=== PATIENT | male | born 1955 | race Caucasian/White ===

== ENCOUNTER 2016-10-08 10:02 | Day surgery (SDC) | payer BC ==
[2016-10-05 15:41] VITALS: BMI 31.6
[2016-10-08 13:30] VITALS: TEMP 98.3
[2016-10-08 13:51] VITALS: BP 120/68; PULSE 62
--- NOTE | 2016-10-11 12:20 | PATH ---
Surgical Pathology Report Patient Name: [facility]. Rec. #: [id number] /Age/Gender: 1955 (Age: 61) / M Account: [id number] Location: [facility]-ENDOSCOPY Taken: 10/08/2016 Received: 10/08/2016 Reported: 10/11/2016 Physicians: Rajinder uL M.D. Specimen(s) Received A: BX DUODENUM B: BX ANTRUM Clinical History GERD Final Diagnosis A. DUODENUM, BIOPSY: DUODENAL MUCOSA WITHOUT SIGNIFICANT PATHOLOGIC CHANGES. NO HISTOLOGIC EVIDENCE OF GLUTEN SENSITIVE ENTEROPATHY (CELIAC DISEASE). B. STOMACH, ANTRUM, BIOPSY: GASTRIC ANTRAL MUCOSA WITH MILD CHRONIC GASTRITIS AND REACTIVE GASTROPATHY. IMMUNOSTAIN FOR H. PYLORI IS NEGATIVE FOR ORGANISMS. Electronically Signed Donald Pena M.D. Gross Description A. Received in formalin, labeled "duodenum" is a warren, irregular portion of soft tissue measuring 0.5 cm in greatest dimension. The specimen is submitted in toto in one cassette. B. Received in formalin, labeled "antrum" are 2 warren, irregular portions of soft tissue averaging 0.4 cm in greatest dimension. The specimens are submitted in toto in one cassette. 10/10/2016 [facility]10/10/2016
== END 2016-10-08 13:50 | disposition home or self-care (01) ==
LOC: FASU-ENDO 10:02
PROVIDERS: ATTEND Internal Medicine Gastroenterology
PROC: 0DB98ZX Excision of Duodenum, Via Natural or Artificial Opening Endoscopic, Diagnostic (ICD-10-PCS; principal; 2016-10-08 12:48)
PROC: 0DB68ZX Excision of Stomach, Via Natural or Artificial Opening Endoscopic, Diagnostic (ICD-10-PCS; 2016-10-08 12:48)
DX: K29.50 Unspecified chronic gastritis without bleeding (principal)
CPT/HCPCS: 88305-TC; 88342-TC

== ENCOUNTER 2017-01-07 14:25 | Observation (INO) | payer OTHER, BC ==
--- NOTE | 2017-01-07 14:40 | PDOC ---
History of Present Illness - General History Source: Patient Exam Limitations: No Limitations <Angela Guadalupe - Last Filed: 01/07/17 17:24> <Naina Abdullahi - Last Filed: 01/07/17 17:47> - General Chief Complaint: Chest Pain Stated Complaint: CHEST TIGHTNESS, PL 0/10 NOW Time Seen by Provider: 01/07/17 14:40 - History of Present Illness Initial Comments: 01/07/17 16:06 61 year old male, with significant past medical history of lap band surgery ( 2012) and GERD, who presents to the emergency room complaining of 3 days of intermittent chest pressure that is nonexertional and not worse with movement. The patient visited an Urgent Care today for these symptoms and his EKG revealed a Right bundle branch block and was advised to visit the ED. He notes that his lower legs seems more swollen than as if he was retaining water. Denies SOB, cough. Denies recent travel. Denies fever, chills, nausea, vomiting. Allergies: NKA PCP: Dr. Familia Sheridan Automotive Product Engineer: Dr. Yip (Eb [place]) Past History <AdrianluisAngela - Last Filed: 01/07/17 17:24> - Past Medical History Anemia: Yes Asthma: No Cancer: No Cardiac Disorders: No CVA: No COPD: No CHF: No Dementia: No Diabetes: No (NOT A PROBLEM SINCE WEIGHT LOSS) GI Disorders: Yes (GERD) Disorders: No HTN: No Hypercholesterolemia: No Liver Disease: No Seizures: No Thyroid Disease: No - Surgical History Abdominal Surgery: Yes (LAP BAND 2012) Appendectomy: No Cardiac Surgery: No Cholecystectomy: No GI Surgery: Yes (LAP BAND) Lung Surgery: No Neurologic Surgery: No Orthopedic Surgery: Yes (RIGHT AND LEFT HIP REPLACEMENT 1999) - Immunization History Td Vaccination: Yes Immunization Up to Date: Yes - Suicide/Smoking/Psychosocial Hx Smoking Status: No Smoking History: Never smoked Have you smoked in the past 12 months: No Number of Cigarettes Smoked Daily: 0 Information on smoking cessation initiated: No Hx Alcohol Use: No Drug/Substance Use Hx: No Substance Use Type: Alcohol Hx Substance Use Treatment: No <Naina Abdullahi - Last Filed: 01/07/17 17:47> - Past Medical History Allergies/Adverse Reactions: Allergies Allergy/AdvReac Type Severity Reaction Status Date / Time No Known Allergies Allergy Verified 01/07/17 14:29 Home Medications: Ambulatory Orders Aspirin [ASA -] 81 mg PO DAILY 11/11/13 Pantoprazole Sodium [Protonix] 40 mg PO DAILY 10/08/16 Cardiac Specific PMH - Complaint Specific PMHX Pacemaker: No <Naina Abdullahi - Last Filed: 01/07/17 17:47> Review of Systems - Review of Systems Able to Perform ROS?: Yes <Angela Guadalupe - Last Filed: 01/07/17 17:24> <Naina Abdullahi - Last Filed: 01/07/17 17:47> - Review of Systems Comments:: 01/07/17 16:11 GENERAL/CONSTITUTIONAL: No fever or chills. No weakness. HEAD, EYES, EARS, NOSE AND THROAT: No change in vision. No ear pain or discharge. No sore throat. GASTROINTESTINAL: No nausea, vomiting, diarrhea or constipation. GENITOURINARY: No dysuria, frequency, or change in urination. CARDIOVASCULAR:+chest pain. No shortness of breath. RESPIRATORY: No cough, wheezing, or hemoptysis. MUSCULOSKELETAL: No joint or muscle swelling or pain. No neck or back pain. SKIN: No rash NEUROLOGIC: No headache, vertigo, loss of consciousness, or change in strength/ sensation. ENDOCRINE: No increased thirst. No abnormal weight change. HEMATOLOGIC/LYMPHATIC: No anemia, easy bleeding, or history of blood clots. ALLERGIC/IMMUNOLOGIC: No hives or skin allergy. (Angela Guadalupe) *Physical Exam <Angela Guadalupe - Last Filed: 01/07/17 17:24> <Naina Abdullahi - Last Filed: 01/07/17 17:47> - Vital Signs Last Vital Signs Temp Pulse Resp BP Pulse Ox 99.3 F 87 16 145/57 99 01/07/17 14:25 01/07/17 17:00 01/07/17 17:00 01/07/17 17:00 01/07/17 17:00 - Physical Exam Comments: 01/07/17 16:12 GENERAL: Awake, alert, and fully oriented, in no acute distress HEAD: No signs of trauma EYES: PERRLA, EOMI, sclera anicteric, conjunctiva clear ENT: Auricles normal inspection, hearing grossly normal, nares patent, oropharynx clear without exudates. Moist mucosa NECK: Normal ROM, supple, no lymphadenopathy, JVD, or masses LUNGS: Breath sounds equal, clear to auscultation bilaterally. No wheezes, and no crackles HEART: Regular rate and rhythm, normal S1 and S2, no murmurs, rubs or gallops ABDOMEN: Soft, nontender, normoactive bowel sounds. No guarding, no rebound. No masses EXTREMITIES: +trace pitting edema bilaterally. Normal range of motion. No clubbing or cyanosis. No cords, erythema, or tenderness NEUROLOGICAL: Cranial nerves II through XII grossly intact. Normal speech, normal gait SKIN: Warm, Dry, normal turgor, no rashes or lesions noted. (Angela Guadalupe) ED Treatment Course - LABORATORY CBC & Chemistry Diagram: 01/07/17 15:15 01/07/17 15:15 <Angela Guadalupe - Last Filed: 01/07/17 17:24> - LABORATORY CBC & Chemistry Diagram: 01/07/17 15:15 01/07/17 15:15 <Naina Abdullahi - Last Filed: 01/07/17 17:47> - ADDITIONAL ORDERS Additional order review: Laboratory Results 01/07/17 01/07/17 15:15 15:15 Sodium 136 Potassium 5.2 H D Chloride 101 Carbon Dioxide 26 Anion Gap 9 BUN 18 Creatinine 1.0 Creat Clearance w eGFR > 60 Random Glucose 86 Calcium 9.5 Total Bilirubin 1.1 H D AST 42 D ALT 23 Alkaline Phosphatase 55 D Creatine Kinase 388 H Creatine Kinase Index 0.6 CK-MB (CK-2) 2.7 Troponin I < 0.03 L Total Protein 7.2 Albumin 4.1 Lipase 40 01/07/17 15:15 RBC 5.23 MCV 67.4 L MCHC 31.4 L RDW 18.8 H D MPV 9.7 Neutrophils % 66.6 Lymphocytes % 21.7 D Monocytes % 7.7 D Eosinophils % 3.7 Basophils % 0.3 - Medications Given in the ED: ED Medications Discontinued Medications Generic Name Dose Route Start Last Admin Trade Name Freq PRN Reason Stop Dose Admin Aspirin 162 mg 01/07/17 15:07 01/07/17 15:15 Asa - PO 01/07/17 15:08 162 mg ONCE ONE Administration Medical Decision Making <Angela Guadalupe - Last Filed: 01/07/17 17:24> <Naina Abdullahi - Last Filed: 01/07/17 17:47> - Medical Decision Making 01/07/17 17:45 Pt presents to the ED complaining of chest discomfort. EKG shows RBB with left anterior fasicular block of uncertain age. Case discussed with Dr. Sheridan, who agrees with admitting the patient for observation. Will admit to telemetry for serial enzymes and possible stress test vs echo in AM. (Naina Abdullahi) *DC/Admit/Observation/Transfer <Angela Guadalupe - Last Filed: 01/07/17 17:24> - Discharge Dispostion Admit: Yes <Naina Abdullahi - Last Filed: 01/07/17 17:47> Diagnosis at time of Disposition: Chest pain Qualifiers: Chest pain type: other chest pain Qualified Code(s): R07.89 - Other chest pain ; R07.8 - Other chest pain - Discharge Dispostion Condition at time of disposition: Good - Referrals Referrals: Dilia Sheridan MD [Primary Care Provider] - - Patient Instructions - Post Discharge Activity
[2017-01-07] MEDS ORDERED: ASPIRIN 81 MG CHEWABLE TABLETS PO ONE (15:07)
[2017-01-07] MEDS ORDERED: ASPIRIN 81 MG CHEWABLE TABLETS ONE (15:22)
[2017-01-07 16:23] LABS: BASOPHIL 0.3 % (0-2.0); EOSINOPHIL 3.7 % (0-4.5); MCH 21.2 pg (25.7-33.7); MCHC 31.4 g/dl (32.0-35.9); MEAN CELL VOLUME 67.4 fl (80-96); MEAN PLT VOLUME 9.7 fl (7.5-11.1); NEUTROPHILS 66.6 % (42.8-82.8); PLATELET COUNT 211 K/MM3 (134-434); RDW 18.8 % (11.9-15.9); WHITE BLOOD COUNT 8.5 K/mm3 (4.0-10.8)
[2017-01-07 16:38] LABS: ALBUMIN 4.1 g/dl (3.5-5.0); ALK PHOS 55 U/L (32-92); ANION GAP 9 (8-16); BILIRUBIN,TOTAL 1.1 mg/dl (0.2-1.0); CALCIUM 9.5 mg/dl (8.4-10.2); CO2 26 mmol/L (22-28); CPK 388 IU/L (39-308); GLUCOSE,RANDOM 86 mg/dl (74-106); SGOT/AST 42 U/L (10-42); SGPT/ALT 23 U/L (10-40); TOT PROT 7.2 g/dl (6.4-8.3)
[2017-01-07 17:03] LABS: TROPONIN I (DFP) < 0.03 ng/ml (0.03-0.50)
[2017-01-07 18:54] VITALS: BMI 35.9
[2017-01-07 19:07] LABS: ANISOCYTOSIS 2+; HYPOCHROMIA 2+; MICROCYTOSIS 2+
--- NOTE | 2017-01-07 19:57 | HP ---
CHIEF COMPLAINT: Chest Pain PCP: Dr. Dilia Sehridan HISTORY OF PRESENT ILLNESS: This is a 61 y/o male with a past medical history of GERD, Anemia, Severe Obesity (s/p Lap Band, 2012). Who presents to the ED with midsternal chest pressure and tightness x 4-5 days. Patient reports going to Urgent Care for CP and having an EKG which showed a RBBB, and was sent here for eval. 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 He reports that the pain radiated from his shoulder to the middle of his chest. Patient reports eating excessive amounts of creamy based soups from the diner and German food noting swelling to bilateral lower extremities. Patient denies fever, chills, cough, SOB, palpitations, AP, N/V/D, constipation, dysuria. Patient reports having an echo February 2016- normal, and a nuclear stress test 6yrs ago- negative. ER course was notable for: (1) EKG- RBBB (2) Troponin I- negative (3) Recent Travel: None PAST MEDICAL HISTORY: GERD Anemia Severe Obesity PAST SURGICAL HISTORY: Lap Band Social History: Smoking: Never Alcohol: Occasional Drugs: None Family History: Allergies No Known Allergies Allergy (Verified 01/07/17 14:29) HOME MEDICATIONS: Home Medications Medication Instructions Recorded Aspirin [ASA -] 81 mg PO DAILY 11/11/13 Pantoprazole Sodium [Protonix] 40 mg PO DAILY 10/08/16 REVIEW OF SYSTEMS CONSTITUTIONAL: Absent: fever, chills, diaphoresis, generalized weakness, malaise, loss of appetite, weight change HEENT: Absent: rhinorrhea, nasal congestion, throat pain, throat swelling, difficulty swallowing, mouth swelling, ear pain, eye pain, visual changes CARDIOVASCULAR: chest pain Absent: syncope, palpitations, irregular heart rate, lightheadedness, peripheral edema RESPIRATORY: Absent: cough, shortness of breath, dyspnea with exertion, orthopnea, wheezing, stridor, hemoptysis GASTROINTESTINAL: Absent: abdominal pain, abdominal distension, nausea, vomiting, diarrhea, constipation, melena, hematochezia GENITOURINARY: Absent: dysuria, frequency, urgency, hesitancy, hematuria, flank pain, genital pain MUSCULOSKELETAL: shoulder pain Absent: myalgia, arthralgia, joint swelling, back pain, neck pain SKIN: Absent: rash, itching, pallor HEMATOLOGIC/IMMUNOLOGIC: Absent: easy bleeding, easy bruising, lymphadenopathy, frequent infections ENDOCRINE: Absent: unexplained weight gain, unexplained weight loss, heat intolerance, cold intolerance NEUROLOGIC: Absent: headache, focal weakness or paresthesias, dizziness, unsteady gait, seizure, mental status changes, bladder or bowel incontinence PSYCHIATRIC: Absent: anxiety, depression, suicidal or homicidal ideation, hallucinations. PHYSICAL EXAMINATION Vital Signs - 24 hr 01/07/17 01/07/17 01/07/17 14:25 17:00 18:25 Temperature 99.3 F 99.9 F H Pulse Rate 89 87 Pulse Rate [ 87 Left Apical] Respiratory 18 16 16 Rate Blood Pressure 150/94 145/75 Blood Pressure 145/57 [Right Arm] O2 Sat by Pulse 98 99 Oximetry (%) GENERAL:Obese, awake, alert, and fully oriented, in no acute distress. HEAD: Normal with no signs of trauma. EYES: Pupils equal, round and reactive to light, extraocular movements intact, sclera anicteric, conjunctiva clear. No lid lag. EARS, NOSE, THROAT: Ears normal, nares patent, oropharynx clear without exudates. Moist mucous membranes. NECK: Normal range of motion, supple without lymphadenopathy, JVD, or masses. LUNGS: Breath sounds equal, clear to auscultation bilaterally. No wheezes, and no crackles. No accessory muscle use. HEART: Regular rate and rhythm, normal S1 and S2 without murmur, rub or gallop. ABDOMEN: Soft, nontender, not distended, normoactive bowel sounds, no guarding, no rebound, no masses. No hepatomegaly or splenomegaly. MUSCULOSKELETAL: Limited range of motion upper joints. FROM lower joints. No bony deformities or tenderness. No CVA tenderness. UPPER EXTREMITIES: 2+ pulses, warm, well-perfused. No cyanosis. No clubbing. No peripheral edema. LOWER EXTREMITIES: 2+ pulses, warm, well-perfused. No calf tenderness. +1 R>L peripheral edema. NEUROLOGICAL: Cranial nerves II-XII intact. Normal speech. Normal gait. PSYCHIATRIC: Cooperative. Good eye contact. Appropriate mood and affect. SKIN: Warm, dry, normal turgor, no rashes or lesions noted, normal capillary refill. Laboratory Results - last 24 hr 01/07/17 01/07/17 01/07/17 15:15 15:15 15:15 WBC 8.5 RBC 5.23 Hgb 11.1 L D Hct 35.3 L D MCV 67.4 L MCH 21.2 L MCHC 31.4 L RDW 18.8 H D Plt Count 211 MPV 9.7 Neutrophils % 66.6 Lymphocytes % 21.7 D Monocytes % 7.7 D Eosinophils % 3.7 Basophils % 0.3 Hypochromia 2+ Anisocytosis 2+ Microcytosis 2+ Sodium 136 Potassium 5.2 H D Chloride 101 Carbon Dioxide 26 Anion Gap 9 BUN 18 Creatinine 1.0 Creat Clearance w eGFR > 60 Random Glucose 86 Calcium 9.5 Total Bilirubin 1.1 H D AST 42 D ALT 23 Alkaline Phosphatase 55 D Creatine Kinase 388 H Creatine Kinase Index 0.6 CK-MB (CK-2) 2.7 Troponin I < 0.03 L Total Protein 7.2 Albumin 4.1 Lipase 40 ASSESSMENT/PLAN: This is a 61 y/o man with a PMHx of GERD, Asthma, Anemia, Severe Obesity. Placed in Tele Observation for Chest Pain r/o ACS for further evaluation of their emergent condition. Plan: 1. Chest Pain - r/o ACS - Continue cardiac monitoring - HEART Score 4 - Serial Enzymes - Appreciate Cardiology Consult - Will order chest xray - Asa, Lipitor - Echo in am - Stress Test 2. GERD - Continue Protonix 3. Asthma - Albuterol neb prn 4. Anemia - Hb 11.1, below baseline - Will transfuse if Hb < 7.0 - Consider iron studies, f/u outpatient 5. Severe Obesity - s/p Lap Band 6. FEN - PO fluids - Replete lytes - Low Na Diet 7. DVT Prophylaxis - OOB - SCDs Code Status: Full Code Dispo: Tele Observation Problem List - Problem (1) Chest pain Code(s): R07.9 - CHEST PAIN, UNSPECIFIED Qualifiers: Chest pain type: other chest pain Qualified Code(s): R07.89 - Other chest pain; R07.8 - Other chest pain (2) GERD (gastroesophageal reflux disease) Code(s): K21.9 - GASTRO-ESOPHAGEAL REFLUX DISEASE WITHOUT ESOPHAGITIS (3) Anemia Code(s): D64.9 - ANEMIA, UNSPECIFIED (4) DVT prophylaxis Code(s): KCP3993 - Visit type - Emergency Visit Emergency Visit: Yes ED Registration Date: 01/07/17 Care time: The patient presented to the Emergency Department on the above date and was hospitalized for further evaluation of their emergent condition. - New Patient This patient is new to me today: Yes Date on this admission: 01/07/17 - Critical Care Critical Care patient: No
[2017-01-08 07:58] LABS: ANION GAP 7 (8-16); CALCIUM 9.5 mg/dl (8.4-10.2); CHOLESTEROL 192 mg/dl; CO2 28 mmol/L (22-28); GLUCOSE,RANDOM 97 mg/dl (74-106); MAGNESIUM 1.8 mg/dL (1.8-2.4); PHOSPHOROUS 3.9 mg/dl (2.5-4.6)
[2017-01-08 08:17] LABS: BASOPHIL 0.6 % (0-2.0); EOSINOPHIL 7.2 % (0-4.5); MCH 21.2 pg (25.7-33.7); MCHC 31.5 g/dl (32.0-35.9); MEAN CELL VOLUME 67.4 fl (80-96); MEAN PLT VOLUME 9.3 fl (7.5-11.1); NEUTROPHILS 59.1 % (42.8-82.8); PLATELET COUNT 204 K/MM3 (134-434); RDW 18.5 % (11.9-15.9); WHITE BLOOD COUNT 6.9 K/mm3 (4.0-10.8)
--- NOTE | 2017-01-08 08:18 | PN ---
Physical Exam: SUBJECTIVE: Patient seen and examined, ambulatory at bedside, denies any chest pain or shortness of breath. OBJECTIVE: patient is a 61 y/o male with a past medical history of GERD, Anemia , Severe Obesity (s/p Lap Band, 2012). patient was admitted from the emergency department to observation for chest pain r/o acs Vital Signs Period Temp Pulse Resp BP Sys/David Pulse Ox Last 24 Hr 98.0 F-99.9 F 61-89 16-18 142-150/57-94 98-99 GENERAL: The patient is awake, alert, and fully oriented, in no acute distress. HEAD: Normal with no signs of trauma. EYES: PERRL, extraocular movements intact, sclera anicteric, conjunctiva clear. No ptosis. ENT: Ears normal, nares patent, oropharynx clear without exudates, moist mucous membranes. NECK: Trachea midline, full range of motion, supple. LUNGS: Breath sounds equal, clear to auscultation bilaterally, no wheezes, no crackles, no accessory muscle use. HEART: Regular rate and rhythm, S1, S2 without murmur, rub or gallop. ABDOMEN: Soft, nontender, nondistended, normoactive bowel sounds, no guarding, no rebound, no hepatosplenomegaly, no masses. EXTREMITIES: 2+ pulses, warm, well-perfused, no edema. NEUROLOGICAL: Cranial nerves II through XII grossly intact. Normal speech, gait not observed. PSYCH: Normal mood, normal affect. SKIN: Warm, dry, normal turgor, no rashes or lesions noted Laboratory Results - last 24 hr CBC WBC 6.9 K/mm3 (4.0-10.8) 01/08/17 07:10 RBC 4.86 M/mm3 (4.00-5.60) 01/08/17 07:10 Hgb 10.3 GM/dl (11.7-16.9) L 01/08/17 07:10 Hct 32.8 % (35.4-49) L 01/08/17 07:10 MCV 67.4 fl (80-96) L 01/08/17 07:10 MCH 21.2 pg (25.7-33.7) L 01/08/17 07:10 MCHC 31.5 g/dl (32.0-35.9) L 01/08/17 07:10 RDW 18.5 % (11.9-15.9) H 01/08/17 07:10 Plt Count 204 K/MM3 (134-434) 01/08/17 07:10 MPV 9.3 fl (7.5-11.1) 01/08/17 07:10 Neutrophils % 59.1 % (42.8-82.8) 01/08/17 07:10 Lymphocytes % 24.5 % (8-40) 01/08/17 07:10 Monocytes % 8.6 % (3.8-10.2) 01/08/17 07:10 Eosinophils % 7.2 % (0-4.5) H D 01/08/17 07:10 Basophils % 0.6 % (0-2.0) 01/08/17 07:10 Hypochromia 2+ 01/07/17 15:15 Anisocytosis 2+ 01/07/17 15:15 Microcytosis 2+ 01/07/17 15:15 CMP Sodium 138 mmol/L (136-145) 01/08/17 07:10 Potassium 4.4 mmol/L (3.5-5.1) 01/08/17 07:10 Chloride 103 mmol/L (98-107) 01/08/17 07:10 Carbon Dioxide 28 mmol/L (22-28) 01/08/17 07:10 Anion Gap 7 (8-16) L 01/08/17 07:10 BUN 18 mg/dl (7-18) 01/08/17 07:10 Creatinine 1.0 mg/dl (0.6-1.3) 01/08/17 07:10 Creat Clearance w eGFR > 60 (>60) 01/07/17 15:15 Random Glucose 97 mg/dl (74-106) 01/08/17 07:10 Hemoglobin A1c % 6.0 % (4.8-6.0) 01/08/17 07:10 Calcium 9.5 mg/dl (8.4-10.2) 01/08/17 07:10 Phosphorus 3.9 mg/dl (2.5-4.6) 01/08/17 07:10 Magnesium 1.8 mg/dL (1.8-2.4) 01/08/17 07:10 Total Bilirubin 1.1 mg/dl (0.2-1.0) H D 01/07/17 15:15 AST 42 U/L (10-42) D 01/07/17 15:15 ALT 23 U/L (10-40) 01/07/17 15:15 Alkaline Phosphatase 55 U/L (32-92) D 01/07/17 15:15 Creatine Kinase 388 IU/L (39-308) H 01/07/17 15:15 Creatine Kinase Index 0.6 % (0.0-5.0) 01/07/17 15:15 CK-MB (CK-2) 2.7 ng/mL (0.3-4.0) 01/07/17 15:15 Troponin I < 0.03 ng/ml (0.03-0.50) L 01/08/17 07:10 Total Protein 7.2 g/dl (6.4-8.3) 01/07/17 15:15 Albumin 4.1 g/dl (3.5-5.0) 01/07/17 15:15 Triglycerides 67 mg/dl (35-160) 01/08/17 07:10 Cholesterol 192 mg/dl 01/08/17 07:10 Total LDL Cholesterol 125 mg/dl 01/08/17 07:10 HDL Cholesterol 54 mg/dl (29-89) 01/08/17 07:10 Lipase 40 U/L (22-51) 01/07/17 15:15 Active Medications Generic Name Dose Route Start Last Admin Trade Name Freq PRN Reason Stop Dose Admin Aspirin 81 mg 01/08/17 10:00 Asa - PO DAILY [facility] Pantoprazole Sodium 40 mg 01/08/17 10:00 Protonix - PO DAILY [facility] ASSESSMENT/PLAN: 1. Chest Pain r/o ACS - Continue cardiac monitoring - troponin x 3 wnl - pending echo - appreciate cardiology input, Dr Yip, patient's private application systems architect 2. GERD - Continue Protonix 3. Asthma - Albuterol neb prn 4. Severe Obesity - s/p Lap Band 5. microcytic anemia - hgb 10.3, anemia secondary to malabsorption pt is s/p bariatric surgery, pending iron studies 6. FEN - PO fluids - Replete lytes - Low Na Diet 7. DVT Prophylaxis - OOB - SCDs Code Status: Full Code Dispo: Tele Observation Visit type - Emergency Visit Emergency Visit: Yes ED Registration Date: 01/07/17 Care time: The patient presented to the Emergency Department on the above date and was hospitalized for further evaluation of their emergent condition. - New Patient This patient is new to me today: Yes Date on this admission: 01/08/17 - Critical Care Critical Care patient: No - Discharge Referral Referred to [facility] No
[2017-01-08] MEDS ORDERED: PANTOPRAZOLE 40 MG TABLET (FP) PO SCH (10:00)
[2017-01-08] MEDS ORDERED: ASPIRIN 81 MG CHEWABLE TABLETS PO SCH (10:00)
[2017-01-08 14:28] VITALS: BP 125/64; PULSE 63; TEMP 98.7
--- NOTE | 2017-01-08 19:04 | CON.CARD ---
Consult Consult Specialty:: Cardiology Referred by:: Hospitalist Reason for Consultation:: Cardiac evaluation - History of Present Illness Chief Complaint: Chest pain History of Present Illness: Patient is a 61 year old male well known to me with underlying history of GERD, anemia, morbid obesity s/p gastric lap band surgery who presents with bilateral shoulder discomfort rather than mid sternal chest discomfort. He denies shortness of breath or palpitation. He denies paroxysmal nocturnal dyspnea or orthopnea. He denies fever or chills. He denies headache or lightheadedness. He denies nausea, vomiting, diarrhea or abdominal pain. Cardiology consultation was called for further evaluation. - History Source History Provided By: Patient, Family Member, Significant Other Limitations to Obtaining History: No Limitations - Past Medical History Gastrointestinal: Yes: GERD Heme/Onc: Yes: Anemia - Past Surgical History Additional Surgical History: Gastric lap band surgery - Alcohol/Substance Use Hx Alcohol Use: Yes (rare) History of Substance Use: reports: None - Smoking History Smoking history: Never smoked Have you smoked in the past 12 months: No Aproximately how many cigarettes per day: 0 Home Medications - Allergies Allergies/Adverse Reactions: Allergies Allergy/AdvReac Type Severity Reaction Status Date / Time No Known Allergies Allergy Verified 01/07/17 14:29 - Home Medications Home Medications: Ambulatory Orders Aspirin [ASA -] 81 mg PO DAILY 11/11/13 Pantoprazole Sodium [Protonix] 40 mg PO DAILY 10/08/16 Aspirin [ASA -] 81 mg PO DAILY tab.chew 01/08/17 Review of Systems - Review of Systems Constitutional: denies: Chills, Fever Cardiovascular: denies: Chest Pain, Palpitations, Shortness of Breath Gastrointestinal: denies: Abdominal Pain, Constipation, Diarrhea, Melena, Rectal Bleeding, Vomiting Neurological: denies: Dizziness, Headache, Seizure, Syncope Vital Signs: Vital Signs Temperature 98.7 F 01/08/17 14:27 Pulse Rate 63 01/08/17 14:27 Respiratory Rate 18 01/08/17 14:27 Blood Pressure 125/64 01/08/17 14:27 O2 Sat by Pulse Oximetry (%) 97 01/08/17 14:27 Neck: Yes: Supple Respiratory: Yes: CTA Bilaterally Gastrointestinal: Yes: Normal Bowel Sounds, Soft. No: Tenderness Cardiovascular: Yes: Regular Rate and Rhythm JVD: No Carotid Bruit: No PMI: Non-Displaced Heart Sounds: Yes: S1, S2. No: Gallop Edema: No - Other Data Labs, Other Data: CBC, BMP 01/08/17 07:10 01/08/17 07:10 Troponin, BNP 01/07/17 01/08/17 21:07 07:10 Troponin I 0.01 < 0.03 L Problem List - Problems (1) Hx of laparoscopic gastric banding Code(s): Z98.84 - BARIATRIC SURGERY STATUS (2) Anemia Code(s): D64.9 - ANEMIA, UNSPECIFIED (3) Chest pain Code(s): R07.9 - CHEST PAIN, UNSPECIFIED Qualifiers: Chest pain type: other chest pain Qualified Code(s): R07.89 - Other chest pain; R07.8 - Other chest pain (4) GERD (gastroesophageal reflux disease) Code(s): K21.9 - GASTRO-ESOPHAGEAL REFLUX DISEASE WITHOUT ESOPHAGITIS Assessment/Plan 1. Chest pain syndrome - presents with bilateral shoulder pain 2. GERD 3. Anemia 4. Exogenous obesity s/p gastric lap band surgery PLAN: 1. Troponins are negative times 2 sets 2. Continue present medications 3. Transthorcic echocardiography was done. Preliminary result with normal LV systolic function 4. Further cardiac work including stress myocardial perfusion imaging is to be considered when approved Further plans are to follow Juni Yip MD
[2017-01-09 04:09] LABS: FERRITIN 7.315 ng/ml (16.4-293.9)
--- NOTE | 2017-01-09 08:08 | DS ---
Physical Exam: SUBJECTIVE: Patient seen and examined, patient denies any chest pain or shortness of breath. OBJECTIVE:This is a 61 y/o male with a past medical history of GERD, Anemia, Severe Obesity (s/p Lap Band, 2013). Who presents to the ED with midsternal chest pressure and tightness x 4-5 days. Patient reports going to Urgent Care for CP and having an EKG which showed a RBBB, and was sent here for eval. 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 He reports that the pain radiated from his shoulder to the middle of his chest. Patient reports eating excessive amounts of creamy based soups from the diner and [place] food noting swelling to bilateral lower extremities. Patient denies fever, chills, cough, SOB, palpitations, AP, N/V/D, constipation, dysuria. Patient reports having an echo February 2016- normal, and a nuclear stress test 6yrs ago- negative. ER course was notable for: (1) EKG- RBBB (2) Troponin I- negative Vital Signs Period Temp Pulse Resp BP Sys/David Pulse Ox Last 24 Hr 98.7 F 63 18 125/64 97 PHYSICAL EXAM GENERAL: The patient is awake, alert, and fully oriented, in no acute distress. HEAD: Normal with no signs of trauma. EYES: PERRL, extraocular movements intact, sclera anicteric, conjunctiva clear. ENT: Ears normal, nares patent, oropharynx clear without exudates, moist mucous membranes. NECK: Trachea midline, full range of motion, supple. LUNGS: Breath sounds equal, clear to auscultation bilaterally, no wheezes, no crackles, no accessory muscle use. HEART: Regular rate and rhythm, S1, S2 without murmur, rub or gallop. ABDOMEN: Soft, nontender, nondistended, normoactive bowel sounds, no guarding, no rebound, no hepatosplenomegaly, no masses. EXTREMITIES: 2+ pulses, warm, well-perfused, no edema. NEUROLOGICAL: Cranial nerves II through XII grossly intact. Normal speech, gait not observed. PSYCH: Normal mood, normal affect. SKIN: Warm, dry, normal turgor, no rashes or lesions noted. LABS Laboratory Results - last 24 hr 01/08/17 01/08/17 01/08/17 07:10 07:10 07:10 WBC 6.9 RBC 4.86 Hgb 10.3 L Hct 32.8 L MCV 67.4 L MCH 21.2 L MCHC 31.5 L RDW 18.5 H Plt Count 204 MPV 9.3 Neutrophils % 59.1 Lymphocytes % 24.5 Monocytes % 8.6 Eosinophils % 7.2 H D Basophils % 0.6 Retic Count Sodium 138 Potassium 4.4 Chloride 103 Carbon Dioxide 28 Anion Gap 7 L BUN 18 Creatinine 1.0 Random Glucose 97 Hemoglobin A1c % Calcium 9.5 Phosphorus 3.9 Magnesium 1.8 Ferritin Troponin I < 0.03 L Triglycerides 67 Cholesterol 192 Total LDL Cholesterol 125 HDL Cholesterol 54 Vitamin B12 01/08/17 01/08/17 01/08/17 07:10 07:20 07:20 WBC RBC Hgb Hct MCV MCH MCHC RDW Plt Count MPV Neutrophils % Lymphocytes % Monocytes % Eosinophils % Basophils % Retic Count 1.38 Sodium Potassium Chloride Carbon Dioxide Anion Gap BUN Creatinine Random Glucose Hemoglobin A1c % 6.0 Calcium Phosphorus Magnesium Ferritin 7.315 L Troponin I Triglycerides Cholesterol Total LDL Cholesterol HDL Cholesterol Vitamin B12 1232 H HOSPITAL COURSE: Patient was admitted from the emergency department to observation for Chest Pain r/o ACS. He was placed on Continue cardiac monitoring, no telemetry events was noted, troponin x 3 wnl, echo normal lv noted, cardiology Dr Yip, patient's private silver holloware assembler was consulted, patient was cleared for discharge by Dr Yip with strict follow up for outpatient stress testing. protonix was continued throughout admission for patient' gerd. patient has a past medical history of asthma, no acute excerbation was noted at this time. He was noted to have microcytic anemia, hgb 10.3, anemia secondary to malabsorption pt is s/p bariatric surgery, pending iron studies. PLAN - start Iron supplements - follow up with Dr Yip silver holloware assembler within 1 week for outpatient stress testing - return precautions reviewed. Date of Admission:01/07/17 Date of Discharge: 01/09/17 Minutes to complete discharge: 45 Discharge Summary Reason For Visit: CHEST PAIN Condition: Good - Instructions Diet, Activity, Other Instructions: continue taking asa 81mg daily continue protonix daily please follow up with Dr Yip within 1 week if any new or persistent symptoms develop please return to the emergency department Referrals: Juni Yip MD [Staff Physician] - Dilia Sheridan MD [Primary Care Provider] - Disposition: HOME - Home Medications Comprehensive Discharge Medication List: Ambulatory Orders RX: Aspirin [ASA -] 81 mg PO DAILY 11/11/13 RX: Pantoprazole Sodium [Protonix] 40 mg PO DAILY 10/08/16 RX: Aspirin [ASA -] 81 mg PO DAILY tab.chew 01/08/17 This patient is new to me today: No Emergency Visit: Yes ED Registration Date: 01/07/17 Care time: The patient presented to the Emergency Department on the above date and was hospitalized for further evaluation of their emergent condition. Critical Care patient: No - Discharge Referral Referred to [facility] No
--- NOTE | 2017-01-14 08:10 | EKG ---
Test Reason : Blood Pressure : / mmHG Vent. Rate : 086 BPM Atrial Rate : 086 BPM P-R Int : 178 ms QRS Dur : 132 ms QT Int : 388 ms P-R-T Axes : 055 -53 029 degrees QTc Int : 464 ms NORMAL SINUS RHYTHM WITH SINUS ARRHYTHMIA RIGHT BUNDLE BRANCH BLOCK LEFT ANTERIOR FASCICULAR BLOCK BIFASCICULAR BLOCK ABNORMAL ECG WHEN COMPARED WITH ECG OF 16-FEB-2005 17:33, (RBBB AND LEFT ANTERIOR FASCICULAR BLOCK) IS NOW PRESENT Confirmed by LINDA CHEEMA MD ([id number]) on 01/14/2017 8:09:58 AM Referred By: MD LINDA Confirmed By:LINDA CHEEMA MD
== END 2017-01-08 19:16 | disposition home or self-care (01) ==
LOC: FER 14:25 → FM/S 18:09
PROVIDERS: ADMIT Internal Medicine; ATTEND Nurse Practitioner Family
DX: R07.89 Other chest pain (principal); K21.9 Gastro-esophageal reflux disease without esophagitis; J45.909 Unspecified asthma, uncomplicated; D64.9 Anemia, unspecified; I45.10 Unspecified right bundle-branch block; E66.9 Obesity, unspecified; Z68.35 Body mass index [BMI] 35.0-35.9, adult; Z98.84 Bariatric surgery status; Z96.643 Presence of artificial hip joint, bilateral; Z79.82 Long term (current) use of aspirin
CPT/HCPCS: 36415; 71020-TC; 80048; 80053; 80061; 82550; 82553; 82607; 82728; 83036; 83540; 83550; 83690; 83735; 84100; 84484; 85025; 85044; 93005; 93010; 93306-TC; 99285-25; G0378